=== PATIENT | female | born 2000 | race Caucasian/White ===

== ENCOUNTER 2023-09-23 06:58 | Day surgery (SDC) | payer BC ==
[~2023-09-23] VITALS: Ht 172.7 cm; Wt 95.3 kg
[2023-09-23 08:01] LABS: HCG,QUAL RESULT NEGATIVE (NEGATIVE)
[2023-09-23] MEDS ORDERED: OXYMETAZOLINE HCL 0.05% NASAL SPRAY NS ONE (09:35)
[2023-09-23] MEDS ORDERED: MEPERIDINE HCL/PF 25 MG/ML DISP.SYRIN IVP PRN (10:15)
[2023-09-23] MEDS ORDERED: hydrALAZINE HCL 20 MG/ML VIAL IVP PRN (10:15)
[2023-09-23] MEDS ORDERED: LR 1,000 ML IV SCH (10:15)
[2023-09-23] MEDS ORDERED: LABETALOL 100 MG/ 20ML VIAL IVP PRN (10:15)
[2023-09-23] MEDS ORDERED: METOCLOPRAMIDE HCL 10 MG/2 ML VIAL IVP PRN (10:15)
[2023-09-23] MEDS ORDERED: MIDAZOLAM HCL 2 MG/2 ML VIAL (VERSED) IVP PRN (10:15)
[2023-09-23] MEDS ORDERED: HYDROmorphone 1 MG/ML INJ. CARTRIDGE IVP PRN ×2 (10:15)
[2023-09-23] MEDS ORDERED: ACETAMINOPHEN I.V. 1000 MG 100 ML IV ONE (10:19)
[2023-09-23 13:58] VITALS: O2SAT 98
[2023-09-23 19:10] VITALS: BP_SYST 134; PULSE 63; RESP 17
== END 2023-09-23 13:46 | disposition home or self-care (01) ==
LOC: SDS 06:58 → SMU 07:00 → SDS 13:46
PROVIDERS: ATTEND Otolaryngology
DX: D38.5 Neoplasm of uncertain behavior of other respiratory organs (principal); J34.89 Other specified disorders of nose and nasal sinuses; J34.2 Deviated nasal septum; J45.909 Unspecified asthma, uncomplicated; F41.9 Anxiety disorder, unspecified; F33.9 Major depressive disorder, recurrent, unspecified; E66.3 Overweight; Z87.891 Personal history of nicotine dependence; Z79.899 Other long term (current) drug therapy; Z68.31 Body mass index [BMI] 31.0-31.9, adult; Z83.3 Family history of diabetes mellitus; Z80.8 Family history of malignant neoplasm of other organs or systems
CPT/HCPCS: 30520; 30140; 84703; 88304; J1100; J3490; J1885; J3465; J2710; J2405; J2704; J3010; J7120; J0131